=== PATIENT | male | born 1955 | race Caucasian/White ===

== ENCOUNTER 2020-07-01 20:41 | Observation (INO) | payer MEDICARE ==
[2020-07-01] MEDS ORDERED: MORPHINE SULFATE INJ 10 MG/ML VIAL IV PRN (21:35)
[2020-07-01] MEDS ORDERED: ONDANSETRON INJ 4 MG/2 ML VIAL IV ONE (21:37)
[2020-07-01] MEDS ORDERED: HYDROcodone 5MG/APAP 325MG 1 EA TAB PO PRN (21:44)
[2020-07-01] MEDS ORDERED: metroNIDAZOLE IV PREMIX 500MG 100 ML IVPB ONE (22:18)
[2020-07-01] MEDS: DEX 5% W/NACL 0.45% 1000ML 1,000 ML IVS PRN (22:23)
[2020-07-02] MEDS: metroNIDAZOLE IV PREMIX 500MG 500 MG in PREMIX BAG 1 BAG IVPB SCH ×2 (01:58→09:55)
[2020-07-02] MEDS: DEX 5% W/NACL 0.45% 1000ML 1,000 ML IVS PRN (07:25)
[2020-07-02] MEDS ORDERED: ACETAMINOPHEN 325 MG TAB PO PRN (08:14)
[2020-07-02] MEDS ORDERED: levoFLOXacin 500MG IV 100 ML IVPB ONE (08:17)
[2020-07-02] MEDS ORDERED: levoFLOXacin 500MG IV 500 MG in PREMIX BAG 1 BAG IVPB SCH (09:00)
--- NOTE | 2020-07-02 09:08 | OP ---
DATE OF PROCEDURE: 07/01/20 PREOPERATIVE DIAGNOSIS: 1. Right lower quadrant abdominal pain. 2. Leukocytosis. 3. Abnormal CT scan. POSTOPERATIVE DIAGNOSIS: 1. Right lower quadrant abdominal pain. 2. Leukocytosis. 3. Abnormal CT scan. 4. Consistent with acute gangrenous appendicitis. PROCEDURE: 1. Laparoscopy and appendectomy. SURGEON: Jarad Nicole MD. TAXATION ACCOUNTANT: None. ANESTHESIA: General endotracheal anesthesia and local infiltration of 0.25% Marcaine with epinephrine. INDICATION: The patient is a 64-year-old male who developed abdominal discomfort this morning with mild nausea. He presented to the Emergency Room as the pain worsened and he was found to have a white count of 12,000 with a left shift and CT scan revealed acute appendicitis, bilateral reducible inguinal hernias and no other pathology. After the risks, benefits and alternatives to the appendectomy were discussed with the patient and the patient received IV Levaquin and Flagyl, he was brought to the Surgical Suite this evening for appendectomy. FINDINGS: The appendix was gangrenous with a significant amount of seropurulent discharge on the necrotic appendix. No obvious perforation was identified. No other pathology was identified. The inguinal hernias were both reducible. PROCEDURE: After the patient was brought to the Surgical Suite and placed in supine position, general endotracheal anesthesia was obtained. A Mcleod catheter was placed. He was prepped and draped in the usual sterile manner. At this time, a surgical time-out was taken. The infraumbilical area was infiltrated with local anesthesia. A curvilinear incision was fashioned and carried down through the subcutaneous tissue to the midline fascia. Traction sutures were placed on either side of the midline. A small incision was made in the midline fascia. The peritoneum was opened bluntly. Dalia trocar was introduced under direct vision into the abdominal cavity and fixed in place with a 20 mL balloon. CO2 was then insufflated until a pressure of 12 mmHg was reached and the abdomen was tympanitic in all four quadrants. When this was done, the laparoscope was introduced and the abdomen was inspected with the previously noted findings. The patient was then placed in the Trendelenburg position. A suprapubic port was placed under direct vision in the usual manner. The right lower quadrant was explored and the appendix was identified. At this point, the left lower quadrant port was placed under direct vision. The patient was turned right side up somewhat and the appendix was identified, isolated and elevated. The base of the appendix was identified and the mesoappendix was divided at the base of the appendix using blunt dissection. The vascular stapler was then used to divide the appendix and then two more firings were used to divide the mesoappendix. The appendix was placed in an EndoCatch bag and removed from the left lower quadrant port site in the usual manner under direct vision. When this was done, there was a small pulsatile bleeder in the mesoappendix and this was controlled with an 0 PDS Endoloop tie. When this was done, hemostasis was noted to be adequate. 4x4s were introduced to mop up the blood and a little bit of serous fluid. These were removed. Hemostasis was noted to be adequate. At this point, the left lower quadrant port was removed under direct vision. It was irrigated with local anesthetic and then the fascia was approximated with two simple sutures of 0 Vicryl placed using the EndoClose device. When these were tightened and tied, hemostasis was noted to be adequate. At this point, the suprapubic port was removed under direct vision. Adequate hemostasis was noted. At this point, the CO2, the laparoscope and the infraumbilical port were removed. The infraumbilical port site fascia was approximated with 2 simple sutures of 0 Vicryl. Subcutaneous tissue was irrigated with local anesthetic. Skin edges were approximated loosely with skin richard. Sterile dressings were applied. The patient was awakened and taken to the Recovery Room in good and stable condition. Estimated blood loss was less than 50 mL. All sponge, needle and instrument counts were correct. #[id number] [facility]
[2020-07-02] MEDS ORDERED: metroNIDAZOLE IV PREMIX 500MG 100 ML IVPB ONE (09:22)
[2020-07-02] MEDS ORDERED: MAGNESIUM HYDROXIDE 30 ML UD PO ONE (13:46)
[2020-07-02] MEDS ORDERED: INFLUENZA VIRUS VACC (ADULT) 0.5 ML SYG IM ONE (14:21)
[2020-07-02 15:20] VITALS: BP 113/66; TEMP 98.6; O2SAT 93
== END 2020-07-02 14:50 | disposition home or self-care (01) ==
LOC: INTOOBSV 20:41 → MS 20:41
PROVIDERS: ADMIT Surgery; ATTEND Surgery
DX: K35.891 Other acute appendicitis without perforation, with gangrene (principal); E87.6 Hypokalemia; R11.0 Nausea; I10 Essential (primary) hypertension; I25.10 Atherosclerotic heart disease of native coronary artery without angina pectoris; Z79.82 Long term (current) use of aspirin; Z79.899 Other long term (current) drug therapy; Z23 Encounter for immunization
CPT/HCPCS: 96361 ×2; 96365; 96375; 96376; J3010; J1956 ×2; J2765; J3490 ×3; J2270; J2405 ×2; J2550; J7030; A4216; J2250; J7799 ×2; 80053; 36415 ×3; 81001; 85025; G0008; 83690; 88304; 74177; 93005; G0378; 44970; 00840

== ENCOUNTER → 2020-07-27 | Outpatient (CLI) | payer MEDICARE ==
--- NOTE | 2020-07-28 17:12 | MRI ---
EXAM DESCRIPTION: Lumbar Spine w/o Contrast : Magnetic Resonance Imaging. CLINICAL HISTORY: RADICULOPATHY COMPARISON: CT scan abdomen July 01 TECHNIQUE: Multiplanar, multiple standard sequences, non contrast MRI, lumbar spine. FINDINGS: L5-S1: The disc is well visualized on axial T2 series 501, image 3. Disc desiccation and minimal disc space loss. Anterior bulging and endplate ridging. Posterior broad-based bulge abutting the bilateral subarticular recesses. Hypertrophic changes in the posterior flavum ligaments and facet joints (canal elements). AP canal diameter 10 mm. Moderate endplate changes bilaterally. Posterior endplates and facet joints bilaterally causing borderline foraminal stenosis abutting the exiting L5 nerves. L4-L5: Disc desiccation and moderate disc space loss. Posterior moderate endplate reactive changes, extending right laterally. Hypertrophic changes in the canal elements more right than left. Narrowing of the bilateral subarticular recesses. AP canal diameter 8 mm. Moderate right foraminal stenosis and borderline left foraminal stenosis by facet and endplate complex. L3-L4: Moderate disc space loss and disc desiccation. Mild anterior L4 endplate fracture with anterior displacement of the endplate. No marrow edema in the fragment or an infiltrate or in the old fracture line. Posterior broad-based disc bulge. Mild endplate reactive changes. Hypertrophic changes in the canal elements. AP canal diameter 8 mm. Bilateral narrowing of the subarticular recess more on the left. Moderate to severe right foraminal narrowing and moderate left foraminal narrowing. Homogeneous oval-shaped soft tissue mass in the right extradural space abutting the thecal sac, the lower margin of the L2-L3 disc space, and the left L2-L3 facet joint. This mass is slightly hyperintense to compared to the thecal sac, the L2-L3 disc material. Dimensions are 1.3 x 0.5 cm transverse and long axis is parallel to the spinal canal measuring 1.8 cm. Complete effacement of the right L2-L3 subarticular recess and left displacement of the thecal sac, which is encroaching on the left subarticular recess. L2-3: Minimal disc desiccation and posterior bulge. Minimal hyperintense T2 signal in the posterior midline margin. Posterior right disc margin is abutting the extradural soft tissue mass. Minimal hypertrophic changes in the canal elements. AP canal diameter 9 mm. Mild to moderate narrowing of the left foramen and moderate to severe narrowing of the right foramen. L1-L2: Disc desiccation and minimal disc space loss. An active Schmorl's node superior and inferior endplate. No significant disc bulging. Hypertrophic changes in the canal elements. Mild to moderate canal narrowing. Bilateral foramina are patent. T12-L1: Disc normal signal and disc space preserved. No bulging. Minimal hypertrophic changes in the canal elements. Bilateral foraminal and canal are patent. Conus terminates at this level. No scoliosis. Paravertebral soft tissues minimal paraspinal muscle atrophy.. Distal cord normal signal and caliber. Normal marrow signal in the remaining vertebral bodies and the posterior elements. Vertebral bodies are not compressed at any level. IMPRESSION: 1. Homogeneous, soft tissue mass in the right extradural space, 1.8 cm long axis parallel to the spinal canal, with upper margin abutting the L2-L3 disc space. Abutting the right L2-L3 facet joint, effacing the right subarticular recess and most likely compromise of the descending right L3 nerve, and displacing thecal sac across the midline effacing the left subarticular recess. Mild central canal stenosis. Most likely sequestered disc fragment from L3-L4 or extruding disc fragment from L2-L3. Cannot exclude extradural mass neurologic origin, such as at L3 nerve root or soft tissue origin. Neurosurgical consult is recommended. 2. Multiple levels of desiccated and bulging discs, spondylosis, hypertrophic changes in the posterior flavum ligaments and facet joints, and narrowing or stenotic foramina and subarticular recesses. 3. Borderline mild central canal stenosis at L5-S1 with spondylosis and bilateral borderline foraminal stenosis. Correlate for bilateral L5 radiculopathy. 4. Multifactorial mild to moderate central canal stenosis at L4-L5 with moderate right foraminal stenosis and borderline left foraminal stenosis. Correlate for bilateral L4 compromise/radiculopathy, right more than left. 5. Multifactorial mild to moderate central canal stenosis at L3-L4 with bilateral subarticular recess narrowing and moderate severe right foraminal narrowing, possible compromise at L3 nerve. Old anterior superior L4 endplate compression or retropulsion fracture with fragment but no edema. 6. Please refer to FINDINGS for discussion of results at other disc space levels. Electronically signed by: Allan Cr MD 07/28/2020 5:11 PM CDT
== END ==
LOC: MRI 11:30
PROVIDERS: ATTEND Family Medicine
DX: M51.16 Intervertebral disc disorders with radiculopathy, lumbar region (principal); M47.26 Other spondylosis with radiculopathy, lumbar region; R22.2 Localized swelling, mass and lump, trunk; M48.061 Spinal stenosis, lumbar region without neurogenic claudication; M48.07 Spinal stenosis, lumbosacral region; M24.28 Disorder of ligament, vertebrae; S32.049S Unspecified fracture of fourth lumbar vertebra, sequela; M46.96 Unspecified inflammatory spondylopathy, lumbar region

== ENCOUNTER → 2020-11-26 | Outpatient (CLI) | payer MEDICARE | LOC: GMAM 10:45 | PROVIDERS: ATTEND Family Medicine | DX: Z12.5 Encounter for screening for malignant neoplasm of prostate (principal); E78.2 Mixed hyperlipidemia; R73.9 Hyperglycemia, unspecified ==